=== PATIENT | male | born 1965 | race Caucasian/White ===

== ENCOUNTER 2017-01-29 07:59 | Inpatient (IN) | payer SELFPAY ==
[~2017-01-29] VITALS: Ht 177.8 cm; Wt 89.0 kg
--- NOTE | ~2017-01-29 | HP ---
PATIENT'S NAME: [facility] AGE: 51 Y [address] ROOM: [place] [address] LOCATION: [facility] [place] ADMIT DATE: 01/29/2017 History & Physical DISCHARGE DATE: FAMILY PHYSICIAN: Krishna Blue MD ATTENDING PHYSICIAN: Krishna Blue DATE OF SERVICE: CHIEF COMPLAINT: Abdominal pain. HISTORY OF PRESENT ILLNESS: The patient is a 51-year-old male, who last night started presenting abdominal pain about 1800 hours. The patient presented emergency department with severe abdominal pain, had a CT performed which shows small bowel obstruction. The patient had a mildly elevated white blood cell count and CRP. The patient also nauseated but denies any chest pain, shortness of breath, fevers, or chills. PAST MEDICAL HISTORY: 1. Chronic obstructive pulmonary disease. 2. Dysphagia. 3. Gastroesophageal reflux disease. 4. Hiatal hernia. PAST SURGICAL HISTORY: 1. Shoulder surgery. 2. Right elbow surgery. 3. Carpal tunnel surgery. 4. Finger surgery. SOCIAL HISTORY: The patient has a history of marijuana and also methamphetamine and currently smokes since age 9. FAMILY HISTORY: Significant for cancer in mother. Cardiovascular disease in father. HIV in a brother. Hypertension and leukemia in the father and also an OR and father. ALLERGIES: 1. CEFTIN. 2. CODEINE. 3. HYDROCODONE. 4. MEDROL DOSEPAK. 5. OXYCODONE. PATIENT'S NAME: [facility] AGE: 51 Y [address] ROOM: [place] [address] LOCATION: [facility] [place] ADMIT DATE: 01/29/2017 History & Physical DISCHARGE DATE: FAMILY PHYSICIAN: Krishna Blue MD ATTENDING PHYSICIAN: Krishna Blue 6. PEAS. 7. THE PATIENT HAS ONLY GI SIDE AFFECTS WITH HYDROCODONE AND OXYCODONE. REVIEW OF SYSTEMS: A complete review of systems obtained, pertinent positives and negatives as mentioned in the HPI. OBJECTIVE: VITAL SIGNS: Temp 96.3, pulse 85, respirations 20, blood pressure 150/86. GENERAL: He is alert and oriented, in mild distress due the pain. HEENT: Head: Normocephalic, atraumatic. Eyes: Conjunctivae clear. No scleral icterus. Mouth: Oropharynx grossly moist and patent with poor dentition noted. NECK: Supple. No lymphadenopathy. HEART: Regular rate and rhythm. No rubs, murmurs, or gallops. LUNGS: Decreased breath sounds bilaterally, but no crackles or wheezes. ABDOMEN: Bowel sounds present. Tender palpation in all quadrants. EXTREMITIES: No cyanosis, clubbing, or edema. VASCULAR: Pulses +2 and equal bilaterally. SKIN: No rash or lesions. LYMPHATICS: No lymphadenopathy. NEURO: Cranial nerves 2-12 grossly intact. LABORATORY DATA: 1. Procal elevated at 0.23. CRP is 2.55. The patient's glucose is elevated at 164 and his white blood cell count was 14.6, and pancreatic enzymes are normal. CT showed small bowel obstruction. ASSESSMENT: 1. Small obstruction. 2. Gastroesophageal reflux disease. 3. Chronic obstructive pulmonary disease with tobacco abuse. 4. Nausea. PLAN: At this time, we will make him n.p.o., start IV fluids. Continue with IV pain medications and also Zofran for nausea. We will monitor his COPD and have him continuous pulse ox and telemetry, and also his GERD. General Surgery to follow. KRISHNA BLUE MD PATIENT'S NAME: ZI MENESES [facility] AGE: 51 Y [address] ROOM: [place] [address] LOCATION: [facility] [place] ADMIT DATE: 01/29/2017 History & Physical DISCHARGE DATE: FAMILY PHYSICIAN: Krishna Blue MD ATTENDING PHYSICIAN: Krishna Blue/jamar /[id number] D: [id number] T: 331 HISTORY & PHYSICAL
--- NOTE | ~2017-01-29 | CON ---
PATIENT'S NAME: DEMETRIUS MENESES [facility] AGE: 51 Y [address] ROOM: [place] [address] LOCATION: [facility] [place] ADMIT DATE: 01/29/2017 Consultation DISCHARGE DATE: FAMILY PHYSICIAN: Kyler Blue MD ATTENDING PHYSICIAN: Kyler Blue REASON FOR CONSULTATION: Abdominal pain. HISTORY OF PRESENT ILLNESS: The patient is a 51-year-old male who had never had previous abdominal surgeries presented with acute onset abdominal pain with nausea and vomiting. He said, yesterday he woke up in the morning and had two watery stools. [place] fine throughout the day, then was at a graduation alliance party, had some beans and said not long after that, had severe pain. He vomited. Said he went home, felt very full. Made himself vomit several times. He is somewhat of a poor historian and he told the nurse he had been passing gas today, but then told me he had not passed gas. He was seen in the emergency room. He was evaluated by Dr. Blue. He had a CT scan that revealed the possibility of a small- bowel obstruction. He did have dilated bowel. Questionable area in the small bowel decompression, although there was a significant amount of liquid within the cecum as well. He also was noted to have thickening of the lower esophagus. The patient states that he has had some difficulty in swallowing food for some time. He never had symptoms similar to this in the past. Had not been around any ill contacts. He has had no fevers or chills. He describes the pain as intermittent. Feels like something is tearing in his abdomen. Nothing seems to make the pain better or worse. CURRENT MEDICATIONS: None. ALLERGIES: CEFTIN, CODEINE, PERFUME, AND STEROIDS. PAST SURGICAL HISTORY: He has had several right shoulder surgeries. SOCIAL HISTORY: He is a smoker. Smokes a pack a day. Has for more than 30 years. Does not drink alcohol. Does use marijuana on occasion and has some history of amphetamine use. FAMILY HISTORY: There is some cancer in the family. Does not know exactly whom as well as some heart trouble. PATIENT'S NAME: DEMETRIUS MENESES [facility] AGE: 51 Y [address] ROOM: [place] [id number] LOCATION: [facility] [place] ADMIT DATE: 01/29/2017 Consultation DISCHARGE DATE: FAMILY PHYSICIAN: Kyler Blue MD ATTENDING PHYSICIAN: Kyler Blue REVIEW OF SYSTEMS: He denies headache or vision changes. He has had issues with his lungs in the past. Has history of TB. Was treated with isoniazid. Denies any chest pain or shortness of breath. He did have the abdominal pain, nausea, and vomiting as well as loose stools. He has had no difficulty with urination. Denies hypertension, chest pain. No diabetes. No hyper or hypothyroidism. Full review of systems is all negative. PHYSICAL EXAMINATION: GENERAL: He is an uncomfortable 51-year-old male. HEENT: Head is normocephalic. His eyes are anicteric. He has very poor dentition. HEART: Regular rate and rhythm. LUNGS: Clear to auscultation bilaterally. ABDOMEN: Soft. Bowel sounds are present. There is very minimal tenderness to palpation. The surgical scars are present. EXTREMITIES: Warm. No edema. NEUROLOGIC: Gross motor is intact. LABORATORY DATA: White blood cell count 14.6, hemoglobin 16.7, hematocrit 50.0, platelets 275. Sodium 140, potassium 3.7, chloride 107, CO2 22, BUN 12, creatinine 1.1. ASSESSMENT: 1. Abdominal pain. Possible bowel obstruction. 2. Distal esophageal thickening. PLAN: Discussed the findings with Demetrius. This is very possible that this could be early obstruction. We will place an NG tube and treat with decompression. We discussed potential need for surgical intervention. We discussed if there is abnormality seen in the esophagus, there is need for endoscopy, once this acute problem has improved. We will place an NG tube. MD RHONDA LI/pelonl /[id number] d: 01/29/176 t: 01/31/17 1813, CONSULTATION REPORT
--- NOTE | ~2017-01-29 | ER ---
PATIENT'S NAME: ZI MENESES [facility] AGE: 51 Y [address] ROOM: [address] [address] [place]: [facility] [place] DATE: 01/29/2017 ER/Outpatient Report DISCHARGE DATE: 01/30/2017 FAMILY PHYSICIAN: Kyler Blue MD ATTENDING PHYSICIAN: Kyler Blue Admission date and time documented in medical record. I saw the patient at 0805 hours. CHIEF COMPLAINT: Severe mid upper abdominal pain, nausea, vomiting, diarrhea. HISTORY OF PRESENT ILLNESS: This patient is a 51-year-old male who came in with severe mid upper abdominal pain, abdominal distention, nausea, vomiting, and diarrhea. The patient stated that this initially started yesterday morning, worsened around 1800 hours last night. He has had multiple episodes of nausea, vomiting, and diarrhea. He says he has had black tarry diarrhea, but no bright red blood in his diarrhea. He has had some bright red blood in his vomitus. No chest pain, shortness of breath. Pain does not radiate to his back. A little lightheaded and dizzy, but no syncope or near syncope. No fall or trauma. No headache, eyes, ears, nose, throat, neck, or spine pain. No recent colds, coughs, flus, fever, chills, or sweats. Stated he tried to eat some beans around 1800 hours last evening and since then, he has just been in agony. He has not been able to urinate. Denies drinking alcohol. Did do some marijuana a couple days ago. Smokes about 1-2 packs cigarettes a day. No joint or muscle swelling, redness, or pain. No skin eruptions or rash. Does have a history of anxiety, depression. No neuro changes or psych issues. Does have a history of peptic ulcer disease with past history of gastric ulcer. HOME MEDICATIONS: See attached medication list. ALLERGIES: CODEINE AND CEFTIN. SOCIAL HISTORY: The patient smokes about 2 packs of cigarettes per day. Does use marijuana. Denies alcohol use. SIGNIFICANT PAST MEDICAL HISTORY: Headaches, anxiety, depression, drug-induced psychosis, alcohol, tobacco, illicit drug abuse, gastroesophageal reflux, hiatal hernia, dental disease, peptic ulcer disease, gastric ulcer. PATIENT'S NAME: ZI MENESES [facility] AGE: 51 Y [address] ROOM: [address] [address] LOC[place]: [facility] [place] ADMIT DATE: 01/29/2017 ER/Outpatient Report DISCHARGE DATE: 01/30/2017 FAMILY PHYSICIAN: Kyler Blue MD ATTENDING PHYSICIAN: Kyler Blue OPERATIONS: Shoulder surgery. REVIEW OF SYSTEMS: All systems reviewed by me are negative with the exception of those discussed in the history of present illness. PHYSICAL EXAMINATION: VITAL SIGNS: Temperature 96.3 tympanic, pulse 85, respirations 20, blood pressure 158/86, O2 saturation on room air is 100%. HEAD: Normocephalic. EYES, EARS, NOSE, THROAT: Clear. Mucous membranes moist. Poor dentition. NECK: No nuchal rigidity. No thyromegaly or cervical adenopathy. SPINE: Negative. LUNGS: Clear. Good air flow. No rales, rhonchi, or wheezes. HEART: Regular. Pulses are palpable. ABDOMEN: Mildly distended. No bowel tones. No organomegaly or abnormal masses palpable. Tender to palpation the mid upper abdomen. Does guard a little bit with some rebound tenderness. No CVA tenderness. Extremities without peripheral edema, cyanosis, or deformity. NEUROVASCULAR: Intact. SKIN: Clear. No skin eruptions or rash. LABORATORY DATA: Procalcitonin was 0.23. Lactate was 3.9. CPK was 50. Point of care cardiac enzymes were normal. Acetaminophen and salicylate levels were normal. CRP was 2.55. CMS was normal except for an elevated glucose 164, elevated alkaline phosphatase 153, medical blood alcohol is less than 0.01. Amylase and lipase were normal. H pylori was negative. White count is 14,600, 92 segs, 5 lymphocytes, 3 monos, hemoglobin 16.7, hematocrit 50.0, platelet count is 275,000, PTT was 27, pro-time is 10.1, INR 0.96. Hemoccult stool was negative. Clot drawn. CT scan of the abdomen and pelvis showed air-fluid levels of small bowel consistent with a small bowel obstruction. Fluid in his colon, wall thickening of distal esophagus, gallstones. CT scan was read by Radiology, see dictated transcribed report. EMERGENCY DEPARTMENT COURSE: I did start the patient on IV normal saline, fluids. Gave him Protonix 40 mg IV in the emergency room. Zofran IV in the emergency room for nausea and vomiting. Fentanyl IV in the emergency room for pain. IMPRESSION: 1. Severe epigastric mid abdominal pain with evidence of what looks like small bowel obstruction on CT scan of the abdomen and pelvis. He has air- fluid levels of small bowel. He has a lot of fluids in his colon with a PATIENT'S NAME: ZI MENESES [facility] AGE: 51 Y [address] ROOM: [address] [address] LOCATION: [facility] [place] ADMIT DATE: 01/29/2017 ER/Outpatient Report DISCHARGE DATE: 01/30/2017 FAMILY PHYSICIAN: Kyler Blue MD ATTENDING PHYSICIAN: Kyler Blue possible colon obstruction. 2. Cholelithiasis. 3. Distal esophageal wall thickening. 4. Tobacco and illicit drug abuse. 5. History of peptic ulcer disease, gastric ulcer. 6. Poor dentition. 7. Anxiety and depression. 8. Headaches. PLAN: Discussed the patient with Dr. Blue. Dr. Blue is coming to the emergency room to evaluate the patient and proceed on his recommendations. The patient most likely needs a surgery consult, NG tube, and further evaluation. I did discuss my findings and recommendations with the patient, he understands. Accumulated critical care time 30 minutes. MD SARAH WHITE/modl /[id number] d: 01/29/17 1449 t: 01/31/17 0611, OUTPATIENT REPORT
[2017-01-29 08:54] LABS: BASOPHIL % 0.2 %; HEMOGLOBIN 16.7 g/dL (12.0-17.0); IMMATURE GRANULOCYTE # 0.1 K/uL (0.0-0.3); IMMATURE GRANULOCYTE % 0.5 %; LYMPHOCYTE # 0.7 K/uL (0.8-4.0); LYMPHOCYTE % 4.6 %; MCHC 33.4 gm/dL (32.0-36.5); MONOCYTE # 0.4 K/uL (0.0-1.0); MONOCYTE % 2.5 %; MPV 9.5 fl (9.4-12.4); NEUTROPHIL # (ANC) 13.4 K/uL (1.4-9.0); NEUTROPHIL % 92.2 %; NRBC % 0 /100WBC (0-0.00); PLATELET COUNT 275 K/uL (150-450); RBC 5.75 M/uL (4.00-6.00); RDW-CV 13.3 % (11.9-14.6); WBC 14.6 K/uL (4.0-11.0)
[2017-01-29 09:12] LABS: INR - (THERAPEUTIC) 0.96 (0.92-1.07); PROTIME 10.1 SECONDS (9.8-11.4); PTT 27 SECONDS (25-32)
[2017-01-29 09:20] LABS: ALBUMIN 3.8 gm/dL (3.5-5.0); ALK PHOS 153 IU/L (33-138); ALT 19 IU/L (12-78); ANION GAP 14.7 (10.0-19.0); AST 10 IU/L (10-40); BLOOD UREA NITROGEN 12 mg/dL (6-24); CALCIUM 8.5 mg/dL (8.5-10.5); CHLORIDE 107 mMol/L (96-110); CO2 22 mMol/L (22-32); CPK 50 IU/L (35-332); CREATININE 1.1 mg/dL (0.6-1.3); ESTIMATED GFR (MDRD EQUATION) > 60; POTASSIUM 3.7 mMol/L (3.7-5.1); SODIUM 140 mMol/L (135-145); TOTAL BILIRUBIN 0.8 mg/dL (0.0-1.5); TOTAL PROTEIN 7.4 g/dL (6.0-8.4)
[2017-01-29 11:44] LABS: BILIRUBIN URINE NEGATIVE (NEGATIVE); BLOOD URINE 25 /UL (NEGATIVE); COLOR URINE AMBER (YELLOW); GLUCOSE URINE NEGATIVE (NEGATIVE); KETONE URINE 5 mg/dL (NEGATIVE); LEUKOCYTES URINE 25 /UL (NEGATIVE); NITRITE URINE NEGATIVE (NEGATIVE); PROTEIN URINE 30 mg/dL (NEGATIVE); SPEC GRAVITY URINE 1.015 (1.003-1.035); TURBIDITY URINE CLEAR (CLEAR); UROBILINOGEN URINE 1 mg/dL (NORMAL)
[2017-01-29 11:51] LABS: BACTERIA URINE NEGATIVE (NEGATIVE); EPITHELIAL URINE NEGATIVE #/HPF (NEGATIVE); MUCUS URINE 2+ (NEGATIVE); RBC URINE RARE #/HPF (NEGATIVE); WBC URINE RARE #/HPF (NEGATIVE)
[2017-01-29 12:04] LABS: BARBITURATE NEGATIVE (NEGATIVE); OPIATES NEGATIVE (NEGATIVE)
[2017-01-29 12:05] LABS: AMPHETAMINE POSITIVE (NEGATIVE); COCAINE NEGATIVE (NEGATIVE)
--- NOTE | 2017-01-29 16:23 | NUR ---
PT ADMITTED FROM ER FOR SMALL BOWEL OBSTRUCTION FOR DR FRYE. C/O SUDDEN ONSET SEVERE ABDOMINAL PAIN STARTING YESTERDAY. CT SHOWED SBO. SURGERY CONSULTED. HX INCLUDES COPD, DYSPHAGIA, GERD, HIATAL HERNIA, MULTIPLE ORTHO SURGERIES, N/T TO R ARM, ELECTROCUTED IN 2012, ANXIETY, DEPRESSION, CARDIAC ARREST AFTER ANESTHESIA PREVIOUSLY. SMOKES 1PPD, MARIJUANA USE, METHAMPHETAMINE USE. ALLERGIES TO PEAS, PERFUME, STEROIDS, OXYCODONE, HYDROCODONE, TYLENOL W/ CODIENE, CEFTIN. UNCLEAR OF ALL ALLERGIES- PT INITIALLY REPORTED NO ALLERGIES, THEN REMEMBERED A COUPLE, EACH TIME ASKED HE HAS REMEMBERED ANTOHER. NG TUBE PLACED TO R NARE- LOW INTERMITTENT SUCTION. SO FAR 1450ML OUTPUT. PT C/O IRRITATION TO THROAT, HAS THREATENED TO RIP IT OUT. OBTAINED ORDER FOR CHLOROSEPTIC SPRAY AND TO REPLACE X1 IF PT PULLS NG. IF PULLS AGAIN TO LEAVE OUT AND NOT CALL SURGEON. IVF STARTED TO L HAND AT 150ML/HR, PRN ZOFRAN AT 1412, PRN 1MG MORPHINE X1 AT 1224, ORDER OBTAINED TO INCREASE MORPHINE TO 1-2MG Q2HR, SECOND DOSE OF 2MG GAVE AT 1520. LITTLE RELIEF NOTED. ENCOURAGED PT TO GET UP AND AMBULATE TO HELP WITH ABDOMINAL CRAMPING, REFUSED AT THE TIME.
--- NOTE | 2017-01-30 04:57 | NUR ---
Significant Event: ALERT AND ORIENTED X3 AMBULATES WITH STAND BY ASSIST. IV TO L HAND RUNNING WITH FLUIDS. VS WNL. MORPHINE X3 LAST DOSE AT 0216, AOFRAN X2 LAST DOES AT 0215. NG TO R NARE 1150 OUT THIS SHIFT. HX OF METH AND DEEDEE USE. ON TELE NO CALLS. ORDER TO REPLACE NG TUBE X1 IF HE PULLS IT OUT AND LEAVE IT OUT IS HE PULLS IT OUT A SECOND TIME. Follow up:
[2017-01-30 06:17] LABS: BASOPHIL % 0.4 %; EOSINOPHIL # 0.1 K/uL (0.0-0.5); EOSINOPHIL % 0.8 %; HEMOGLOBIN 14.8 g/dL (12.0-17.0); IMMATURE GRANULOCYTE % 0.2 %; LYMPHOCYTE # 1.8 K/uL (0.8-4.0); LYMPHOCYTE % 21.6 %; MCHC 32.9 gm/dL (32.0-36.5); MCV 88.2 fl (83.0-98.0); MONOCYTE # 0.8 K/uL (0.0-1.0); MONOCYTE % 9.5 %; MPV 9.4 fl (9.4-12.4); NEUTROPHIL # (ANC) 5.7 K/uL (1.4-9.0); NEUTROPHIL % 67.5 %; NRBC % 0 /100WBC (0-0.00); PLATELET COUNT 201 K/uL (150-450); RDW-CV 13.5 % (11.9-14.6); WBC 8.4 K/uL (4.0-11.0)
[2017-01-30 06:31] LABS: ALBUMIN 3.3 gm/dL (3.5-5.0); ALK PHOS 131 IU/L (33-138); ALT 16 IU/L (12-78); AST 9 IU/L (10-40); BLOOD UREA NITROGEN 11 mg/dL (6-24); CALCIUM 8.1 mg/dL (8.5-10.5); CHLORIDE 110 mMol/L (96-110); CO2 25 mMol/L (22-32); CREATININE 0.8 mg/dL (0.6-1.3); ESTIMATED GFR (MDRD EQUATION) > 60; SODIUM 142 mMol/L (135-145); TOTAL PROTEIN 6.5 g/dL (6.0-8.4)
[2017-01-30 06:35] LABS: TOTAL BILIRUBIN 0.6 mg/dL (0.0-1.5)
[2017-01-30] MEDS ORDERED: DILAUDID 2MG(HYD2 MG PO (08:37)
--- NOTE | 2017-01-30 11:25 | NUR ---
Significant Event: Alert & oriented. VSS, afebrile, room air. NG tube to LIS with 450 ml output. Bowel sounds active, ok'd for sips of water. Weakness to R) arm, surgical hx. Morphine and Zofran given x1. MERCHANDISE DIRECTOR informed RN that patient needed to discharge by certain time today to pay bills. RN entered room and patient stated that NG "fell out." Upon further questioning pt said he needed to leave within 30 minutes or he would lose his trailer. AMA paperwork signed. Tele discontinued and IV removed. Belongings with patient, family to transport.
== END 2017-01-30 09:48 | disposition left against medical advice (07) | DRG 390 ==
LOC: GMED 07:59 → GMSU 11:18
PROVIDERS: Emergency Medicine; Surgery; ADMIT Family Medicine
DX: K56.60 Unspecified intestinal obstruction (principal); R13.10 Dysphagia, unspecified; K22.8 Other specified diseases of esophagus; J44.9 Chronic obstructive pulmonary disease, unspecified; K21.9 Gastro-esophageal reflux disease without esophagitis; R11.0 Nausea; F17.290 Nicotine dependence, other tobacco product, uncomplicated
CPT/HCPCS: C9113; G0480; J2270; J2405; J3010; J7030